=== PATIENT | female | born 1975 ===

== ENCOUNTER 2021-07-02 14:36 | Outpatient (CLI) | payer OTHER | END 2021-07-02 15:04 | disposition home or self-care (01) | LOC: RAD 14:36 | PROVIDERS: ATTEND Obstetrics & Gynecology Gynecology | DX: N64.89 Other specified disorders of breast (principal); D48.61 Neoplasm of uncertain behavior of right breast; Z12.31 Encounter for screening mammogram for malignant neoplasm of breast ==